=== PATIENT | male | born 1945 | race Caucasian/White ===

== ENCOUNTER 2021-12-18 14:54 | Outpatient (CLI) | payer OTHER | END 2021-12-18 15:04 | disposition home or self-care (01) | LOC: RAD 14:54 | DX: S23.41XA Sprain of ribs, initial encounter (principal); S29.9XXA Unspecified injury of thorax, initial encounter ==

== ENCOUNTER → 2021-12-26 | Outpatient (CLI) | payer OTHER | END | disposition home or self-care (01) | LOC: SONOGRAMA 08:11 | DX: R74.01 Elevation of levels of liver transaminase levels (principal) ==

== ENCOUNTER 2022-10-03 15:30 | Outpatient (CLI) | payer OTHER | END 2022-10-03 15:38 | disposition home or self-care (01) | LOC: RAD 15:30 | PROVIDERS: ATTEND Internal Medicine Geriatric Medicine | DX: I10 Essential (primary) hypertension (principal); U09.9 Post COVID-19 condition, unspecified ==

== ENCOUNTER 2022-10-08 07:27 | Outpatient (CLI) | payer OTHER | END 2022-10-08 07:28 | disposition home or self-care (01) | LOC: SONOGRAMA 07:27 | PROVIDERS: ATTEND Internal Medicine Geriatric Medicine | DX: K76.9 Liver disease, unspecified (principal) ==

== ENCOUNTER 2023-08-20 07:29 | Outpatient (CLI) | payer OTHER | END 2023-08-20 07:30 | disposition home or self-care (01) | LOC: NUCLEAR 07:29 | DX: E05.90 Thyrotoxicosis, unspecified without thyrotoxic crisis or storm (principal) | CPT/HCPCS: 78012; A9528 ==